=== PATIENT | female | born 1950 | race Caucasian/White ===

== ENCOUNTER 2024-01-14 18:03 | Emergency (ER) | payer MEDICARE, BC ==
[~2024-01-14] VITALS: Ht 157.5 cm; Wt 54.4 kg
[2024-01-14] MEDS ORDERED: [UNRECOGNIZED DRUG - OTHER] (18:38)
[2024-01-14] MEDS ORDERED: [UNRECOGNIZED DRUG - OTHER] (18:38)
[2024-01-14] MEDS ORDERED: METOCLOPRAMIDE HCL 10 MG/2 ML VIAL IV ONE (19:15)
[2024-01-14] MEDS: CLONIDINE HCL 0.1 MG TABLET PO ONE ×2 (19:21→21:21)
[2024-01-14] MEDS: ACETAMINOPHEN 500 MG TABLET PO ONE (19:25)
[2024-01-14 19:28] LABS: BASOPHILS % (AUTO) 0.3 % (0.0-2.0); EOSINOPHILS % (AUTO) 0.1 % (0.0-7.0); HEMATOCRIT 39.9 % (31.2-41.9); HEMOGLOBIN 13.2 g/dL (10.9-14.3); LYMPHOCYTES # (AUTO) 0.5 K/uL (0.8-4.8); LYMPHOCYTES % (AUTO) 5.3 % (20.5-51.5); MEAN CORPUSCULAR HEMOGLOBIN 29.2 uug (24.7-32.8); MEAN CORPUSCULAR HGB CONC 33 g/dL (32.3-35.6); MEAN CORPUSCULAR VOLUME 88.1 fL (75.5-95.3); MONOCYTES # (AUTO) 0.5 K/uL (0.1-1.30); MONOCYTES % (AUTO) 5.4 % (0.0-11.0); NEUTROPHILS # (AUTO) 7.6 K/uL (1.8-8.9); NEUTROPHILS % (AUTO) 88.9 % (38.5-71.5); PLATELET COUNT (AUTO) 207 K/uL (179-408); RED BLOOD CELL COUNT(AUTO) 4.53 MIL/uL (3.63-4.92); RED CELL DISTRIBUTION WIDTH 12.5 % (12.3-17.7); WHITE BLOOD COUNT (AUTO) 8.5 K/uL (3.8-11.8)
[2024-01-14 19:41] LABS: ALANINE AMINOTRANSFERASE 24 U/L (14-59); ALBUMIN 4.2 g/dL (3.4-5.0); ALKALINE PHOSPHATASE 75 U/L (50-136); ASPARTATE AMINOTRANSFERASE 12 U/L (15-37); BILIRUBIN,TOTAL 0.9 mg/dL (0.2-1.0); CALCIUM 9.2 mg/dL (8.5-10.1); CARBON DIOXIDE 27 mmol/L (21-32); CHLORIDE 94 mmol/L (98-107); CREATININE 0.7 mg/dL (0.6-1.3); GLUCOSE 130 mg/dL (74-106); MAGNESIUM 1.9 mg/dL (1.8-2.4); POTASSIUM 3.7 mmol/L (3.5-5.1); SODIUM SERUM 133 mmol/L (136-145); TOTAL PROTEIN, SERUM 7.3 g/dL (6.4-8.2); UREA NITROGEN, BLOOD 8 mg/dL (7-18)
[2024-01-14 20:38] LABS: DIFFERENTIAL COMMENT 1
[2024-01-14] MEDS ORDERED: CLONIDINE HCL 0.1 MG TABLET ONE (21:20)
[2024-01-14 21:24] VITALS: BP 132/80; TEMP 97.9; O2SAT 98
== END 2024-01-14 21:24 | disposition home or self-care (01) ==
LOC: ER 18:05
DX: R51.9 Headache, unspecified (principal); I10 Essential (primary) hypertension
CPT/HCPCS: 36415; 70450; 83735; 85025; A4606; A4663; A9150